=== PATIENT | female | born 1990 | race Caucasian/White ===

== ENCOUNTER 2017-05-15 16:03 | Outpatient (CLI) ==
[2013-12-24 10:45] VITALS: BMI 35.3
== END 2017-05-15 16:04 | disposition home or self-care (01) ==
LOC: LAB 16:03
PROVIDERS: ATTEND Nurse Practitioner Family
DX: J02.9 Acute pharyngitis, unspecified (principal)
CPT/HCPCS: 87651; 87880

== ENCOUNTER 2018-03-09 02:13 | Emergency (ER) ==
[2018-03-09 02:23] VITALS: BP 143/101; TEMP 97.6; BMI 35.4
[2018-03-09] MEDS ORDERED: ZOFRAN ODT PO STA (02:27)
[2018-03-09] MEDS ORDERED: IMITREX SUBCUT STA (02:27)
--- NOTE | 2018-03-09 02:28 | ED.PDOC ---
General ED Provider: Dr. LEO MERRITT Chief Complaint: Headache Stated Complaint: Headaches almost every day worse on her period. Ibupfren has not helped. Time Seen by Physician: 02:26 Mode of Arrival: Walk-In Information Source: Patient Exam Limitations: No limitations Primary Care Provider: SUYAPA TYSON Nursing and Triage Documentation Reviewed and Agree: Yes Does patient meet sepsis criteria?: No System Inflammatory Response Syndrome: Not Applicable Sepsis Protocol: For patient's 13 years and over: Temp is 96.8 and below OR 101 and greater Pulse >90 BPM Resp >20/minute Acutely Altered Mental Status Are patient's symptoms suggestive of a new infection, such as: -Pneumonia -Skin, Soft Tissue -Endocarditis -UTI -Bone, Joint Infection -Implantable Device -Acute Abdominal Infection -Wound Infection -Meningitis -Blood Stream Catheter Infection -Unknown Review of Systems - Review Of Systems Constitutional: Reports: Loss of appetite Eyes: Reports: Photophobia Ears, Nose, Mouth, Throat: Reports: No symptoms Respiratory: Reports: No symptoms Cardiac: Reports: No symptoms GI: Reports: Nausea. Denies: Vomiting : Reports: No symptoms Musculoskeletal: Reports: No symptoms Skin: Reports: No symptoms Neurological: Reports: Headache All Other Systems: Reviewed and Negative Past Medical History - Past Medical History Previously Healthy: Yes Endocrine: Reports: None Cardiovascular: Reports: None Respiratory: Reports: None Hematological: Reports: None Gastrointestinal: Reports: None Genitourinary: Reports: None Neuro/Psych: Reports: Migraine Musculoskeletal: Reports: None Cancer: Reports: None Last Menstrual Period: CURRENT - Surgical History General Surgical History: Reports: - Family History Family History: Reports: None - Social History Smoking Status: Current every day smoker, Heavy tobacco smoker Hx Substance Use: No Alcohol Screening: None - Immunizations Tetanus Shot up to Date: Yes Physical Exam - Physical Exam Appearance: Ill-appearing, Obese Ill-appearing: Moderate Pain Distress: Severe Eyes: RUKHSANA, EOMI, Conjunctiva clear ENT: Nose normal, Oropharynx normal Neck: Supple Cardiovascular: RRR, Pulses normal, No rub, No murmur Musculoskeletal: Normal strength, ROM intact Skin: Warm, Dry Neurological: Sensation intact, Motor intact, Alert, Oriented Psychiatric: Affect appropriate, Mood appropriate Re-Evaluation - Re-Evaluation Time of Re-Evaluation: 03:08 Status: Improved Vital Signs Stable: Yes Critical Care Note - Critical Care Note Total Time (mins): 0 Course - Course Orders, Labs, Meds: Orders Category Date Time Status Ondansetron [Zofran Odt] MEDS 03/09/18 02:27 Discontinued 8 mg PO ONCE STA Sumatriptan Succinate [Imitrex] MEDS 03/09/18 02:27 Discontinued 6 mg SUBCUT ONCE STA Medications Discontinued Medications Generic Name Dose Route Start Last Admin Trade Name Freq PRN Reason Stop Dose Admin Ondansetron HCl 8 mg 03/09/18 02:27 03/09/18 02:35 Zofran Odt PO 03/09/18 02:28 8 mg ONCE STA Administration Sumatriptan Succinate 6 mg 03/09/18 02:27 03/09/18 02:35 Imitrex SUBCUT 03/09/18 02:28 6 mg ONCE STA Administration Vital Signs: Temp Pulse Resp BP Pulse Ox 03/09/18 02:14 97.6 F 69 16 143/101 H 98 Departure - Departure Time of Disposition: 03:08 Disposition: HOME SELF-CARE Discharge Problem: Chronic migraine Instructions: Migraine Headache (ED) Condition: Stable Pt referred to PMD for follow-up: Yes IPMP verified?: No Additional Instructions: Take migraine medication as needed Followup with PCP in 3 days Push fluids Prescriptions: Butalb/Acetaminophen/Caffeine [Fioricet] 1 each PO TID PRN #15 tablet PRN Reason: Migranes Allergies/Adverse Reactions: Allergies No Known Allergies Allergy (Unverified 03/09/18 02:17) Home Medications: Ambulatory Orders Norgestimate-Ethinyl Estradiol [Mononessa 28 Tablet] 1 each PO d 08/17/16 Ranitidine HCl [Zantac] 150 mg PO BEDTIME 08/17/16 Butalb/Acetaminophen/Caffeine [Fioricet] 1 each PO TID PRN #15 tablet 03/09/18 Disposition Discussed With: Patient, Family
== END 2018-03-09 03:11 | disposition home or self-care (01) ==
LOC: ED 02:13
DX: G43.909 Migraine, unspecified, not intractable, without status migrainosus (principal); F17.210 Nicotine dependence, cigarettes, uncomplicated
CPT/HCPCS: 96372; 99282

== ENCOUNTER 2018-05-06 08:20 | Outpatient (CLI) | END 2018-05-06 08:21 | disposition home or self-care (01) | LOC: LAB 08:20 | PROVIDERS: ATTEND Nurse Practitioner Family | DX: Z00.00 Encounter for general adult medical examination without abnormal findings (principal) | CPT/HCPCS: 36415; 80053; 80061; 84443; 85025 ==

== ENCOUNTER 2018-06-06 14:20 | Outpatient (CLI) | END 2018-06-06 14:21 | disposition home or self-care (01) | LOC: RHC-LAB 14:20 | PROVIDERS: ATTEND Nurse Practitioner Family | DX: J02.9 Acute pharyngitis, unspecified (principal) | CPT/HCPCS: 87651 ==

== ENCOUNTER 2018-07-16 08:40 | Emergency (ER) ==
[2018-07-16 08:43] VITALS: TEMP 98.1; BMI 47.2
[2018-07-16 08:44] VITALS: BP 137/97
--- NOTE | 2018-07-16 09:30 | ED.PDOC ---
General ED Provider: Dr. ALE BENZ Chief Complaint: Foot Pain/Injury Stated Complaint: LEFT FOOT AND ANKLE PAIN CHRONIC SINCE 2010 Time Seen by Physician: 08:43 (NO INJURY REPORTED FAMILY IN THE ROOM AT ALL TIME ) Mode of Arrival: Walk-In Information Source: Patient Exam Limitations: No limitations Primary Care Provider: ALTA LIU Nursing and Triage Documentation Reviewed and Agree: Yes Does patient meet sepsis criteria?: No System Inflammatory Response Syndrome: Not Applicable Sepsis Protocol: For patient's 13 years and over: Temp is 96.8 and below OR 101 and greater Pulse >90 BPM Resp >20/minute Acutely Altered Mental Status Are patient's symptoms suggestive of a new infection, such as: -Pneumonia -Skin, Soft Tissue -Endocarditis -UTI -Bone, Joint Infection -Implantable Device -Acute Abdominal Infection -Wound Infection -Meningitis -Blood Stream Catheter Infection -Unknown Musculoskeletal Complaint Exam - Ankle/Foot Complaint/Exam Location of Injury: Reports: Left, Ankle, Foot Mechanism of Injury: Reports: No known trauma (CHRONIC ISSUE BUT HAD A FALRE UP TODAY) Onset/Duration: TODAY Symptoms Are: Reports: Still present Onset of Pain: Reports: Immediate Initial Severity: Mild Current Severity: Mild Location: Reports: Discrete Character: Reports: Aching Alleviating: Reports: Rest Aggravating: Reports: Movement Able to Bear Weight: Yes Associated Signs and Symptoms: Denies: Swelling, Redness, Bruising, Fever, Weakness, Numbness, Tingling Gout Risk Factors: Reports: None Related Surgical History: Reports: None Lower Extremity Findings: Absent: Swelling, Ecchymosis, Abnormal contour, Rotation, Ligamentous instability, Laceration, Erythema, Warmth, Blisters Achilles Tendon Abnormality: No Tenderness: Present: Midfoot, Metatarsals, Digits. Absent: Medial malleolus, Lateral malleolus, Heel, Achilles insertion Limited Range of Motion: Absent: Inversion, Eversion Differential Diagnosis: Closed Fracture Review of Systems - Review Of Systems Constitutional: Reports: No symptoms Eyes: Reports: No symptoms Ears, Nose, Mouth, Throat: Reports: No symptoms Respiratory: Reports: No symptoms Cardiac: Reports: No symptoms GI: Reports: No symptoms : Reports: No symptoms Musculoskeletal: Reports: Joint pain (FOOT LEFT) Skin: Reports: No symptoms Neurological: Reports: No symptoms Endocrine: Reports: No symptoms Hematologic/Lymphatic: Reports: No symptoms All Other Systems: Reviewed and Negative Past Medical History - Past Medical History Previously Healthy: Yes Endocrine: Reports: None Cardiovascular: Reports: None Respiratory: Reports: None Hematological: Reports: None Gastrointestinal: Reports: None Genitourinary: Reports: None Neuro/Psych: Reports: Migraine Musculoskeletal: Reports: None Cancer: Reports: None Last Menstrual Period: last week - Surgical History General Surgical History: Reports: - Family History Family History: Reports: None - Social History Smoking Status: Current every day smoker, Heavy tobacco smoker Hx Substance Use: No Alcohol Screening: Occasionally Physical Exam - Physical Exam Appearance: Well-appearing, No pain distress, Well-nourished Eyes: RUKHSANA, EOMI, Conjunctiva clear ENT: Ears normal, Nose normal, Oropharynx normal Respiratory: Airway patent, Breath sounds clear, Breath sounds equal, Respirations nonlabored Cardiovascular: RRR, Pulses normal, No rub, No murmur GI/: Soft, Nontender, No masses, Bowel sounds normal, No Organomegaly Musculoskeletal: Normal strength, ROM intact, No edema, No calf tenderness Skin: Warm, Dry, Normal color Neurological: Sensation intact, Motor intact, Reflexes intact, Cranial nerves intact, Alert, Oriented Psychiatric: Affect appropriate, Mood appropriate Interpretation - Radiology Interpretation Radiology Interpretation By: ED Physician Radiology Results: Negative Critical Care Note - Critical Care Note Total Time (mins): 0 Course - Course Orders, Labs, Meds: Orders Category Date Time Status ANKLE, LEFT MIN 3 VIEWS Stat RADS 07/16/18 09:00 Ordered FOOT, LEFT 3 VIEWS Stat RADS 07/16/18 09:00 Ordered Vital Signs: Temp Pulse Resp BP Pulse Ox 07/16/18 08:40 98.1 F 86 16 137/97 H 97 Departure - Departure Time of Disposition: 10:10 Disposition: HOME SELF-CARE Discharge Problem: Foot pain, left Instructions: Metatarsalgia (DC), Arthralgia (ED), Foot Sprain (ED) Condition: Good Pt referred to PMD for follow-up: Yes IPMP verified?: No Additional Instructions: Please call your Family Physician as soon as possible to schedule a follow-up appointment. Allergies/Adverse Reactions: Allergies No Known Allergies Allergy (Verified 07/16/18 08:42) Home Medications: Ambulatory Orders Ranitidine HCl [Zantac] 150 mg PO BEDTIME 08/17/16
--- NOTE | 2018-07-16 10:04 | DI ---
EXAM: Three views of the left foot HISTORY: Left foot injury. COMPARISON: Left ankle x-rays same day FINDINGS: There is no cortical irregularity or displaced fracture of the left foot. There is no lyti c or blastic lesion. The joint spaces are maintained. The arch is maintained. Soft tissues are unr emarkable. IMPRESSION: No acute abnormality or displaced fracture of the left foot.
--- NOTE | 2018-07-16 10:05 | DI ---
EXAM: Three views of the left ankle HISTORY: Left ankle injury. COMPARISON: Same day left foot x-ray FINDINGS: No acute abnormality or displaced fracture of the left ankle. The joint space is maintaine d. The soft tissues are unremarkable. There is no lytic or blastic lesion. The osseous structures in the hind foot are normal. IMPRESSION: No acute abnormality or displaced fracture of the left ankle.
== END 2018-07-16 10:45 | disposition home or self-care (01) ==
LOC: ED 08:40
DX: M25.572 Pain in left ankle and joints of left foot (principal); G89.29 Other chronic pain; F17.210 Nicotine dependence, cigarettes, uncomplicated
CPT/HCPCS: 99282

== ENCOUNTER 2018-07-17 12:23 | Outpatient (CLI) ==
[2018-07-16 08:43] VITALS: BMI 47.2
== END 2018-07-17 12:24 | disposition home or self-care (01) ==
LOC: RHC-LAB 12:23
PROVIDERS: ATTEND Nurse Practitioner Family
DX: R79.89 Other specified abnormal findings of blood chemistry (principal)
CPT/HCPCS: 36415; 84443

== ENCOUNTER 2018-09-24 09:14 | Outpatient (CLI) | payer MEDICAID, OTHER | END 2018-09-24 09:15 | disposition home or self-care (01) | LOC: RHC-LAB 09:14 | PROVIDERS: ATTEND Nurse Practitioner Family | DX: E03.9 Hypothyroidism, unspecified (principal) | CPT/HCPCS: 36415; 84443 ==

== ENCOUNTER 2018-11-26 08:14 | Outpatient (CLI) | END 2018-11-26 08:15 | disposition home or self-care (01) | LOC: RHC-LAB 08:14 | PROVIDERS: ATTEND Nurse Practitioner Family | DX: E03.9 Hypothyroidism, unspecified (principal) | CPT/HCPCS: 36415; 84443 ==